=== PATIENT | female | born 1955 | race Caucasian/White ===

== ENCOUNTER 2025-09-02 14:15 | Emergency (ER) | payer OTHER ==
[2025-09-02 14:31] VITALS: BP 127/65; PULSE 70; RESP 18; TEMP 97.9; BMI 20.1
[2025-09-02] MEDS ORDERED: DIPHTH,PERTUSS(ACELL),TET 0.5 ML DISP.SYRIN IM ONE (15:35)
[2025-09-02] MEDS: DIPHTH,PERTUSS(ACELL),TET 0.5 ML DISP.SYRIN IM ONE (15:43)
== END 2025-09-02 15:57 | disposition home or self-care (01) ==
LOC: FER 14:15
PROC: 3E0234Z Introduction of Serum, Toxoid and Vaccine into Muscle, Percutaneous Approach (ICD-10-PCS; principal; 2025-09-02)
DX: S00.03XA Contusion of scalp, initial encounter (principal); Z23 Encounter for immunization; W22.03XA Walked into furniture, initial encounter
CPT/HCPCS: 70450-TC; 90471; 90715; 99285-25